=== PATIENT | female | born 1965 ===

== ENCOUNTER 2023-09-26 22:39 | Emergency (ER) | payer OTHER, SELFPAY ==
[2023-09-26 22:45] VITALS: BP 180/80; PULSE 86; O2SAT 98
[2023-09-26 22:56] VITALS: BP 178/82; PULSE 92; RESP 18; TEMP 36.8; O2SAT 99; BMI 44.6
[2023-09-26 23:48] LABS: Basophils Absolute Auto 0.1 X10*3/uL (0.0-0.2); Basophils Percent Auto 0.6 % (0-2); Eosinophils Absolute Auto 0.5 X10*3/uL (0.0-0.4); Eosinophils Percent Auto 5.4 % (0-4); Hemoglobin 13.5 g/dl (12.0-16.0); Imm Gran Abs Auto 0.05 X10*3/uL (0.00-0.03); Imm Gran Pct Auto 0.5 % (0.0-0.4); Lymphocytes Absolute Auto 1.8 X10*3/uL (1.2-4.9); Lymphocytes Percent Auto 18.1 % (20-40); MANUAL DIFF FLAG NO; Mean Corpuscular HGB Conc 32.1 g/dl (31.0-35.0); Mean Corpuscular Hemoglobin 29.2 pg (27.0-33.0); Mean Corpuscular Volume 90.7 fL (80.0-98.0); Mean Platelet Volume 9.8 fL (9.4-12.3); Monocytes Absolute Auto 0.5 X10*3/uL (0.1-1.2); Monocytes Percent Auto 5.4 % (2-11); Platelet Count 244 X10*3/uL (160-400); Red Blood Count 4.63 X10*6/uL (4.20-5.50); Red Cell Distribution Width 13.4 % (11.0-16.0)
[2023-09-27 00:03] LABS: Alanine Aminotransferase 15 U/L (0-31); Albumin Level 3.6 g/dL (3.5-5.0); Alkaline Phosphatase 182 U/L (39-117); Anion Gap 10 (12-20); Aspartate Amino Transferase 14 U/L (5-31); Bilirubin Total 0.3 mg/dL (0.0-1.0); Blood Urea Nitrogen 8 mg/dL (9-16); Calcium 9.3 mg/dL (8.4-10.2); Carbon Dioxide 29 mmol/L (22-29); Chloride 101 mmol/L (96-108); Creatinine Clr Calc Pharmacy 100.6; Estimated Glomerular Filt Rate > 60; Glucose Random 105 mg/dL (60-115); Potassium 4.3 mmol/L (3.3-5.1); Sodium 136 mmol/L (135-145); Total Protein 7.5 g/dL (6.5-8.0)
[2023-09-27 00:07] LABS: Prothrombin Time 200.1 SEC (11.1-13.3)
[2023-09-27 00:13] LABS: INTERNATIONAL NORM RATIO 16.4 (0.9-1.1)
[2023-09-27 00:43] LABS: Prothrombin Time 12.1 SEC (11.1-13.3)
[2023-09-27 00:45] LABS: D Dimer High Sensitivity 163 NG/ML; Partial Thromboplastin Time 28.6 SEC (26.0-36.8)
[2023-09-27 02:00] VITALS: BP 151/72; PULSE 71; RESP 18; TEMP 36.7; O2SAT 98
[2023-09-27 04:25] VITALS: BP 119/61; PULSE 67; RESP 18; TEMP 36.7; O2SAT 98
[2023-09-27 05:49] VITALS: BP 135/65; PULSE 64; RESP 18; TEMP 36.6; O2SAT 96
--- NOTE | 2023-09-27 05:52 | MHC.EDTECH ---
Hourly rounds and vitals completed,patient is resting at this time,call banegas in reach
--- NOTE | 2023-09-27 07:37 | ED.LOWEXIN ---
HPI - Extremity Injury (Lower) General Chief Complaint: Extremity Injury, Lower Stated Complaint: swollen left leg,skin turning darker Time Seen by Provider: 09/27/23 07:11 Source: patient Mode of arrival: EMS History of Present Illness ED Provider: Dr Can HPI Narrative: 58-year-old female arrives via ambulance for complaints of left leg pain for 1 year and states that the pain and discoloration continues to get worse. She describes intermittent swelling and has not been seen by her primary care provider since before COVID-19. She otherwise denies any other medical complaints and is on methadone. She denies any fevers or chills. Related Data Allergies Allergy/AdvReac Type Severity Reaction Status Date / Time prednisone Allergy Anaphylaxis Verified 09/26/23 23:06 Review of Systems Review of Systems: Pertinent positives and negatives as stated in HPI [facility] Past Medical History Source: nursing notes reviewed Social History Social History Smoked in Last 30 Days: No Use of substances other than those prescribed or required for medical reasons: No Advance Directives: No Advance Directives Information Provided: No Do you have a plan to hurt others: No Plan Patient : No Physical Exam Vital Signs: Vital Signs: Last Vital Signs Temp 97.8 F 09/27/23 05:49 Pulse 64 09/27/23 05:49 Resp 18 09/27/23 05:49 BP 135/65 09/27/23 05:49 Pulse Ox 96 09/27/23 05:49 O2 Del Method Room Air 09/27/23 05:49 BMI result Body Mass Index 44.6 VITAL SIGNS: Reviewed. GENERAL: Elevated BMI, Well developed, well nourished, in no acute distress. HEAD: Normocephalic/atraumatic EYES: PERRLA, EOMI LUNGS: Normal breath sounds. No adventitious sounds or accessory muscle use. SpO2<96> CARDIOVASCULAR: Regular rate and rhythm without noted murmurs, no JVD or lower extremity edema. ABDOMEN: Soft, non-tender, non-distended with bowel sounds. MUSCULOSKELETAL: No tenderness, deformities, or effusions noted on gross inspection. EXTREMITIES: No cyanosis, clubbing or edema. LLE: There are some chronic skin changes to the left lower extremity of bronzing, no pitting edema, no erythema/induration, extremity is warm, palpable pulses, no deformities SKIN: Inspection of the skin reveals no rashes NEUROLOGIC: Alert and oriented x 4. Strength and sensation to light touch were grossly intact x 4. Medical Decision Making Medical Decision Making [facility] Narrative: 0720: 58-year-old female with history and clinical presentation, DDX: PVD, venous insufficiency, no clinical suspicion of DVT or threatened limb. No clinical suspicion for cellulitis/thrombophlebitis. I reviewed all investigations and hematologic indices are negative for leukocytosis/anemia/thrombocytopenia. Coagulation studies are within normal limits, [id number] further ruling out the likelihood of underlying DVT. Chemistry indices are negative for MICHAEL/electrolyte or liver enzyme derangements. My interpretation is that patient is suffering from chronic PVD/venous insufficiency and there is no evidence of acute process ongoing, I recommended that patient begin using compression stockings and follow-up with your primary care doctor. Differential Diagnosis Differential Diagnoses: The differential diagnosis associated with the presentation includes Please see the discussion above Admission/Observation Consideration of admission/observation: Escalation of care including admission/observation considered Please see the discussion above Lab Data MDM Lab Attestation statement: I reviewed the patient's lab results. Please see the discussion above 09/26/23 23:43 09/26/23 23:43 Labs: Lab Results 09/26/23 09/27/23 Range/Units 23:43 00:27 WBC 10.0 (4.8-10.8) X10*3/uL RBC 4.63 (4.20-5.50) X10*6/uL Hgb 13.5 (12.0-16.0) g/dl Hct 42.0 (37.0-47.0) % MCV 90.7 (80.0-98.0) fL MCH 29.2 (27.0-33.0) pg MCHC 32.1 (31.0-35.0) g/dl RDW 13.4 (11.0-16.0) % Plt Count 244 (160-400) X10*3/uL MPV 9.8 (9.4-12.3) fL Immature Gran % (Auto) 0.5 H (0.0-0.4) % Neut % (Auto) 70.0 (45-73) % Lymph % (Auto) 18.1 L (20-40) % Bailey % (Auto) 5.4 (2-11) % Eos % (Auto) 5.4 H (0-4) % Baso % (Auto) 0.6 (0-2) % Lymph # (Auto) 1.8 (1.2-4.9) X10*3/uL Bailey # (Auto) 0.5 (0.1-1.2) X10*3/uL Eos # (Auto) 0.5 H (0.0-0.4) X10*3/uL Baso # (Auto) 0.1 (0.0-0.2) X10*3/uL Abs Immat Gran (auto) 0.05 H (0.00-0.03) X10*3/uL Absolute Neuts (auto) 7.0 (2.0-8.3) x10*3/uL Absolute Nucleated RBC 0.000 (0.0-0.012) X10*3/uL Nucleated RBC % (auto) 0.0 (0.0-0.2) /100WBC PT 200.1 H 12.1 D (11.1-13.3) SEC INR 16.4 H* 1.0 D (0.9-1.1) APTT 28.6 (26.0-36.8) SEC D-Dimer High Sensitivty 163 NG/ML Sodium 136 (135-145) mmol/L Potassium 4.3 (3.3-5.1) mmol/L Chloride 101 (96-108) mmol/L Carbon Dioxide 29 (22-29) mmol/L Anion Gap 10 L (12-20) BUN 8 L (9-16) mg/dL Creatinine 0.76 (0.5-1.4) mg/dL Estim Creat Clear Calc 100.6 Estimated GFR > 60 Random Glucose 105 (60-115) mg/dL Calcium 9.3 (8.4-10.2) mg/dL Total Bilirubin 0.3 (0.0-1.0) mg/dL AST 14 (5-31) U/L ALT 15 (0-31) U/L Alkaline Phosphatase 182 H (39-117) U/L Total Protein 7.5 (6.5-8.0) g/dL Albumin 3.6 (3.5-5.0) g/dL Discharge Plan Discharge Clinical Impression: Venous insufficiency Instructions: Venous Insufficiency (DC), Peripheral Vascular Disease (ED) Additional Instructions: 1. I recommend that you began using compression stockings 2. Follow-up with your primary care doctor as scheduled. Return to the ER for any worsening symptoms. Referrals: Jude Andrew MD [Primary Care Provider] - Print Language: [place]
--- NOTE | 2023-09-27 07:44 | PC.NURSE ---
Pt reports left lower leg pain and numbness X1 month, difficulty ambulating (uses cane at baseline). Pt also reports other symptoms of dizzy spells, diarrhea and constipation. Denies CP, SOB, N/V, fevers, cough. Alert and oriented, breathing even and unlabored. Left lower leg noted to be swollen, kovacs of the skin noted, nails long and unkept. + pulse, sensation and motion noted. Does report numbness to 3 middle toes.
[2023-09-27 08:00] VITALS: PULSE 71; RESP 20; TEMP 36.2; O2SAT 95
[2023-09-27 08:32] VITALS: BP 135/65; PULSE 71; RESP 20; TEMP 36.2; O2SAT 95
[2023-10-01 06:53] LABS: PTT (LAC) Screen 36 sec (<=40)
== END 2023-09-27 08:33 | disposition home or self-care (01) ==
PROVIDERS: Emergency Medicine Emergency Medical Services; Emergency Provider Student in an Organized Health Care Education/Training Program; PCP Internal Medicine
DX: I87.2 Venous insufficiency (chronic) (peripheral) (principal)
CPT/HCPCS: 36415; 80053; 85025; 85379; 85597; 85598; 85610; 85613; 85730; 99283; 99284